=== PATIENT | male | born 1950 | race Caucasian/White ===

== ENCOUNTER 2022-09-09 13:58 | Emergency (ER) | payer MEDICARE, BC ==
[2022-09-09] MEDS ORDERED: Ibuprofen 600 MG Tab PO ONE (14:51)
[2022-09-09 15:32] LABS: INFLUENZA A NAA NEGATIVE (NEGATIVE); INFLUENZA B NAA NEGATIVE (NEGATIVE)
[2022-09-09 15:35] LABS: CORONAVIRUS COVID-19 NAA NEGATIVE (NEGATIVE)
== END 2022-09-09 16:02 | disposition home or self-care (01) ==
LOC: KA.ED 13:58
DX: J06.9 Acute upper respiratory infection, unspecified (principal); R50.9 Fever, unspecified; Z79.82 Long term (current) use of aspirin; Z79.899 Other long term (current) drug therapy; Z20.822 Contact with and (suspected) exposure to COVID-19
CPT/HCPCS: 0240U; 71046; 99284; A9270-GY